=== PATIENT | female | born 1970 | race African-American/Black ===

== ENCOUNTER 2020-04-18 13:49 | Inpatient (IN) | payer OTHER, SELFPAY ==
--- NOTE | ~2020-04-18 | XR_ITS ---
EXAMINATION: PORTABLE CHEST 1 VIEW CLINICAL INFORMATION: OD . COMPARISON: No recent pertinent prior studies are available for comparison. TECHNIQUE: Portable frontal view of the chest was obtained. FINDINGS: Lungs are well expanded. No superimposed focal infiltrate, effusion, edema, or pneumothorax. Cardiac and mediastinal silhouettes within normal limits for the technique. There is convex right scoliotic curve with spinal hardware noted. XR/XR chest 1V IMPRESSION: Spinal hardware. Lungs appear clear.
[2020-04-18 14:00] VITALS: RESP 16; BMI 49.1
--- NOTE | 2020-04-18 14:29 | ED.PSYCH ---
HPI - Psych General Chief Complaint: Psychiatric Symptoms Stated Complaint: +SI Time Seen by Provider: 04/18/20 14:26 Source: EMS Mode of arrival: EMS Limitations: other (Intoxicated) History of Present Illness HPI Narrative: This is a 50-year-old female who presents via EMS from home with suicidal ideations. She is intoxicated admits to EtOH use states she has a history of crack cocaine use she last used yesterday she recently relapsed. Additionally she reports she has a history of depression she has been on clonidine and took 5 tablets 6 hours prior to arrival ?I did this before they do not do anything to me? she admits to intentional overdose in attempt to commit suicide. Patient upon arrival severely agitated yelling and trying. She has a strong odor of EtOH. That in the nurse's triage note it reports 60 mg of clonidine however this is a order processing specialist error and is post read 0.6 mg which is equivalent to 6 tablets of 0.1 mg. MD complaint: suicidal ideation, feels depressed and substance abuse Relieving factors: none Context: recent alcohol abuse and recent drug abuse Associated psychiatric symptoms: depression and suicidal ideation Treatments prior to arrival: placed on mental health hold If self harm: admits thoughts of self harm and intentional overdose Related Data Allergies Allergy/AdvReac Type Severity Reaction Status Date / Time Penicillins Allergy Rash Verified 04/18/20 14:29 Review of Systems Review of Systems: Yes Unobtainable due to mental condition (Intoxication and agitated) [facility] Past Medical History Medical History (Updated 04/18/20 @ 17:07 by Darrell Malin NP) Depression Substance abuse Social History Social History Alcohol intake: current Alcohol intake frequency: 3 or more drinks per day Alcohol type: beer and hard liquor Smoking Status: Unknown if ever smoked Use of substances other than those prescribed or required for medical reasons: Yes Substance Use Type: Crack/Cocaine and Marijuana Physical Exam Vital Signs: Vital Signs: Last Vital Signs Temp 98 F 04/18/20 14:43 Pulse 103 H 04/18/20 14:43 Resp 16 04/18/20 14:43 BP 145/87 H 04/18/20 14:43 Pulse Ox 98 04/18/20 14:43 Body Mass Index 49.1 Reviewed Const: Other: Yelling and screaming, grabbed her belongings from staff forcefully when she changed over to hospital attire. She is tearful labile mood. Strong odor of EtOH. Denies any pain or discomfort. General: anxious, combative and intoxicated appearing Nutritional Appearance: overweight Orientation/consciousness: patient oriented x3 HENMT: Head: Yes normal to inspection Ears: hearing grossly normal bilaterally Eyes: General: appearance normal, both eyes and all related structures Visual Lind: normal visual lind by confrontation Eyelids: Yes eyelids normal Conjunctivae: conjunctivae normal Sclerae: sclerae normal Corneas: corneas normal Pupils: Equal, round and reactive pupils present EOM: EOMs intact bilaterally Neck: Neck: Yes normal visual inspection, No positive Brudzinski's sign, No positive Kernig's sign and No tender Thyroid: Thyroid normal Chest: Chest palpation & inspection: normal inspection of the chest Resp: Effort & Inspection: normal respiratory effort Auscultation: clear to auscultation bilaterally Cardio: Jugular venous distension: no JVD Rhythm: regular rhythm Heart sounds: S1 normal heart sound present and S2 normal heart sound present GI: Inspection: Yes normal to inspection Palpation (GI): Soft to palpation Percussion: Yes normal to percussion Auscultation: normal bowel sounds : General: Yes no CVA tenderness Back/Spine/Pelvis: Back: no CVA tenderness Skin: General skin exam: no rashes or lesions noted Neuro: General: patient oriented x3 Cranial nerves: Yes Equal, round and reactive pupils present Extrem: General: Yes normal to inspection Course Reevaluation(s) Reevaluation #1: 1430 In review 42-year-old female with history of polysubstance abuse and depression presenting with complaint of suicidal ideation apparently took 5 or 6 tablets of clonidine about 6 hours prior to arrival with intentional plan to harm herself. Appears extremely agitated upon arrival, exit seeking behavior but briefly able to redirect. Quiet environment and food offered continues to yell and very tearful. Agreeable to medication given 2 mg of IV Ativan, requesting something to eat. Plan reviewed will get medical screening labs including toxicology studies and EKG will discuss case with poison Control. Will plan for repeat labs for tox screening at 4 hours and once medically cleared will obtain a crisis evaluation. Reevaluation #2: 1630 Has been much calmer since being medicated. Lab work shows leukocytosis 16 this is likely reactive and electrolytes show slightly hyper K at 3.2 given p.o. replacement. Otherwise UA shows positive cocaine and marijuana and negative for Tylenol salicylate. Ethanol 156. Plan for repeat at 18:30 orders placed. Given the leukocytosis will get a chest x-ray as well. If chest x-ray and repeat labs are stable patient can be medically cleared to be evaluated by crisis. Reevaluation #3: 1710 Patient placed on physician observation as she will require more time for repeat evaluation and once she is clinically sober from the alcohol she will need crisis evaluation. She may require acute inpatient psychiatric placement. Sign-out to [place] night team pending repeat labs and disposition. MDM - Psych Differential Diagnosis Differential diagnosis: Likely acute psychosis, suicidal ideation, bipolar disorder, depression, drug-induced psychotic disorder, acute anxiety, substance abuse, alcohol intoxication, overdose and mood disorder Lab Data Result diagrams: 04/18/20 14:51 04/18/20 14:50 Labs: Lab Results 04/18/20 04/18/20 04/18/20 Range/Units 14:47 14:47 14:47 WBC (4.8-10.8) X10*3/uL RBC (4.20-5.50) X10*6/uL Hgb (12.0-16.0) g/dl Hct (37-47) % MCV (80-98) fL MCH (27.0-33.0) pg MCHC (31.0-35.0) g/dl RDW (11.0-16.0) % Plt Count (160-400) X10*3/uL MPV (9.4-12.3) fL Immature Gran % (Auto) (0.0-0.4) % Neut % (Auto) (45-73) % Lymph % (Auto) (20-40) % [place] % (Auto) (2-11) % Eos % (Auto) (0-4) % Baso % (Auto) (0-2) % Lymph # (Auto) (1.2-4.9) X10*3/uL [place] # (Auto) (0.1-1.2) X10*3/uL Eos # (Auto) (0.0-0.4) X10*3/uL Baso # (Auto) (0.0-0.2) X10*3/uL Abs Immat Gran (auto) (0.00-0.03) X10*3/uL Absolute Neuts (auto) (2.0-8.3) X10*3/uL Absolute Nucleated RBC (0.0-0.012) X10*3/uL Nucleated RBC % (auto) (0.0-0.2) /100WBC PT (10.8-13.0) SEC INR (0.9-1.1) APTT (24.1-38.0) SEC Sodium (135-145) mmol/L Potassium (3.3-5.1) mmol/L Chloride (96-108) mmol/L Carbon Dioxide (22-29) mmol/L Anion Gap (12-20) BUN (9-16) mg/dL Creatinine (0.5-1.4) mg/dL Estim Creat Clear Calc Estimated GFR Random Glucose (60-115) mg/dL Calcium (8.4-10.2) mg/dL Total Bilirubin (0.0-1.0) mg/dL AST (5-31) U/L ALT (0-31) U/L Alkaline Phosphatase (39-117) U/L Total Protein (6.5-8.0) g/dL Albumin (3.5-5.0) g/dL Urine Color STRAW Urine Appearance CLEAR Urine pH 6.0 (5.0-8.0) Ur Specific [place] <= 1.005 (1.005-1.025) Urine Protein NEG (NEG-TRACE) MG/DL Urine Glucose (UA) NEG (NEG) MG/DL Urine Ketones NEG (NEG) MG/DL Urine Blood NEG (NEG) Urine Nitrite NEG (NEG) Ur Leukocyte Esterase NEG (NEG) Urine RBC 0 (0) /HPF Urine WBC 0 (0-4) /HPF Ur Squamous Epith Cells 1+ /LPF Urine Bacteria TRACE /LPF Urine Test NEGATIVE (NEGATIVE) Salicylates (15-30) mg/dL Urine Opiates Screen Not Detected (Not Detect) Acetaminophen (<30) mcg/mL Ur Barbiturates Screen Not Detected (Not Detect) Ur Phencyclidine Scrn Not Detected (Not Detect) Ur Amphetamines Screen Not Detected (Not Detect) U Benzodiazepines Scrn Not Detected (Not Detect) Urine Cocaine Screen POSITIVE H (Not Detect) U Marijuana (THC) Screen POSITIVE H (Not Detect) Ethyl Alcohol mg/dL 04/18/20 04/18/20 04/18/20 Range/Units 14:50 14:50 14:51 WBC 16.7 H (4.8-10.8) X10*3/uL RBC 4.55 (4.20-5.50) X10*6/uL Hgb 13.9 (12.0-16.0) g/dl Hct 40.6 (37-47) % MCV 89.2 (80-98) fL MCH 30.5 (27.0-33.0) pg MCHC 34.2 (31.0-35.0) g/dl RDW 13.4 (11.0-16.0) % Plt Count 386 (160-400) X10*3/uL MPV 8.7 L (9.4-12.3) fL Immature Gran % (Auto) 0.5 H (0.0-0.4) % Neut % (Auto) 63.7 (45-73) % Lymph % (Auto) 29.3 (20-40) % [place] % (Auto) 5.9 (2-11) % Eos % (Auto) 0.4 (0-4) % Baso % (Auto) 0.2 (0-2) % Lymph # (Auto) 4.9 (1.2-4.9) X10*3/uL [place] # (Auto) 1.0 (0.1-1.2) X10*3/uL Eos # (Auto) 0.1 (0.0-0.4) X10*3/uL Baso # (Auto) 0.0 (0.0-0.2) X10*3/uL Abs Immat Gran (auto) 0.09 H (0.00-0.03) X10*3/uL Absolute Neuts (auto) 10.6 H (2.0-8.3) X10*3/uL Absolute Nucleated RBC 0.000 (0.0-0.012) X10*3/uL Nucleated RBC % (auto) 0.0 (0.0-0.2) /100WBC PT (10.8-13.0) SEC INR (0.9-1.1) APTT (24.1-38.0) SEC Sodium 140 (135-145) mmol/L Potassium 3.1 L (3.3-5.1) mmol/L Chloride 103 (96-108) mmol/L Carbon Dioxide 21 L (22-29) mmol/L Anion Gap 19 (12-20) BUN 3 L (9-16) mg/dL Creatinine 0.65 (0.5-1.4) mg/dL Estim Creat Clear Calc 141.7 Estimated GFR > 60 Random Glucose 105 (60-115) mg/dL Calcium 9.5 (8.4-10.2) mg/dL Total Bilirubin 0.4 (0.0-1.0) mg/dL AST 15 (5-31) U/L ALT 9 (0-31) U/L Alkaline Phosphatase 108 (39-117) U/L Total Protein 7.8 (6.5-8.0) g/dL Albumin 4.3 (3.5-5.0) g/dL Urine Color Urine Appearance Urine pH (5.0-8.0) Ur Specific [place] (1.005-1.025) Urine Protein (NEG-TRACE) MG/DL Urine Glucose (UA) (NEG) MG/DL Urine Ketones (NEG) MG/DL Urine Blood (NEG) Urine Nitrite (NEG) Ur Leukocyte Esterase (NEG) Urine RBC (0) /HPF Urine WBC (0-4) /HPF Ur Squamous Epith Cells /LPF Urine Bacteria /LPF Urine Test (NEGATIVE) Salicylates < 5.0 L (15-30) mg/dL Urine Opiates Screen (Not Detect) Acetaminophen < 1 (<30) mcg/mL Ur Barbiturates Screen (Not Detect) Ur Phencyclidine Scrn (Not Detect) Ur Amphetamines Screen (Not Detect) U Benzodiazepines Scrn (Not Detect) Urine Cocaine Screen (Not Detect) U Marijuana (THC) Screen (Not Detect) Ethyl Alcohol 156 mg/dL 04/18/20 Range/Units 14:51 WBC (4.8-10.8) X10*3/uL RBC (4.20-5.50) X10*6/uL Hgb (12.0-16.0) g/dl Hct (37-47) % MCV (80-98) fL MCH (27.0-33.0) pg MCHC (31.0-35.0) g/dl RDW (11.0-16.0) % Plt Count (160-400) X10*3/uL MPV (9.4-12.3) fL Immature Gran % (Auto) (0.0-0.4) % Neut % (Auto) (45-73) % Lymph % (Auto) (20-40) % [place] % (Auto) (2-11) % Eos % (Auto) (0-4) % Baso % (Auto) (0-2) % Lymph # (Auto) (1.2-4.9) X10*3/uL [place] # (Auto) (0.1-1.2) X10*3/uL Eos # (Auto) (0.0-0.4) X10*3/uL Baso # (Auto) (0.0-0.2) X10*3/uL Abs Immat Gran (auto) (0.00-0.03) X10*3/uL Absolute Neuts (auto) (2.0-8.3) X10*3/uL Absolute Nucleated RBC (0.0-0.012) X10*3/uL Nucleated RBC % (auto) (0.0-0.2) /100WBC PT 12.6 (10.8-13.0) SEC INR 1.1 (0.9-1.1) APTT 33.8 (24.1-38.0) SEC Sodium (135-145) mmol/L Potassium (3.3-5.1) mmol/L Chloride (96-108) mmol/L Carbon Dioxide (22-29) mmol/L Anion Gap (12-20) BUN (9-16) mg/dL Creatinine (0.5-1.4) mg/dL Estim Creat Clear Calc Estimated GFR Random Glucose (60-115) mg/dL Calcium (8.4-10.2) mg/dL Total Bilirubin (0.0-1.0) mg/dL AST (5-31) U/L ALT (0-31) U/L Alkaline Phosphatase (39-117) U/L Total Protein (6.5-8.0) g/dL Albumin (3.5-5.0) g/dL Urine Color Urine Appearance Urine pH (5.0-8.0) Ur Specific [place] (1.005-1.025) Urine Protein (NEG-TRACE) MG/DL Urine Glucose (UA) (NEG) MG/DL Urine Ketones (NEG) MG/DL Urine Blood (NEG) Urine Nitrite (NEG) Ur Leukocyte Esterase (NEG) Urine RBC (0) /HPF Urine WBC (0-4) /HPF Ur Squamous Epith Cells /LPF Urine Bacteria /LPF Urine Test (NEGATIVE) Salicylates (15-30) mg/dL Urine Opiates Screen (Not Detect) Acetaminophen (<30) mcg/mL Ur Barbiturates Screen (Not Detect) Ur Phencyclidine Scrn (Not Detect) Ur Amphetamines Screen (Not Detect) U Benzodiazepines Scrn (Not Detect) Urine Cocaine Screen (Not Detect) U Marijuana (THC) Screen (Not Detect) Ethyl Alcohol mg/dL ECG Data Interpretation: Vent. Rate : 104 BPM Atrial Rate : 104 BPM P-R Int : 128 ms QRS Dur : 072 ms QT Int : 334 ms P-R-T Axes : 051 052 043 degrees QTc Int : 439 ms Sinus tachycardia Possible Left atrial enlargement Borderline ECG No previous ECGs available Discharge Plan Discharge Clinical Impression: Substance abuse, Depression, Clonidine overdose, Alcohol intoxication
[2020-04-18] MEDS: LORazepam 2 MG/ML VIAL IVPUSH (14:32)
[2020-04-18 14:43] VITALS: BP 145/87; PULSE 103; RESP 16; TEMP 36.6; O2SAT 98
[2020-04-18 14:57] LABS: MANUAL DIFF FLAG NO
[2020-04-18 14:59] LABS: Basophils Percent Auto 0.2 % (0-2); Eosinophils Absolute Auto 0.1 X10*3/uL (0.0-0.4); Eosinophils Percent Auto 0.4 % (0-4); Hematocrit 40.6 % (37-47); Hemoglobin 13.9 g/dl (12.0-16.0); Imm Gran Abs Auto 0.09 X10*3/uL (0.00-0.03); Imm Gran Pct Auto 0.5 % (0.0-0.4); Lymphocytes Absolute Auto 4.9 X10*3/uL (1.2-4.9); Lymphocytes Percent Auto 29.3 % (20-40); Mean Corpuscular HGB Conc 34.2 g/dl (31.0-35.0); Mean Corpuscular Hemoglobin 30.5 pg (27.0-33.0); Mean Corpuscular Volume 89.2 fL (80-98); Mean Platelet Volume 8.7 fL (9.4-12.3); Monocytes Percent Auto 5.9 % (2-11); Neutrophils Absolute Auto 10.6 X10*3/uL (2.0-8.3); Neutrophils Percent Auto 63.7 % (45-73); Platelet Count 386 X10*3/uL (160-400); Red Blood Count 4.55 X10*6/uL (4.20-5.50); Red Cell Distribution Width 13.4 % (11.0-16.0); White Blood Count 16.7 X10*3/uL (4.8-10.8)
[2020-04-18 15:10] LABS: Glucose Urine UA NEG (NEG); Leukocyte Esterase Urine NEG (NEG); Nitrite Urine NEG (NEG); Specific Gravity - Urine <= 1.005 (1.005-1.025); Urine Blood NEG (NEG); Urine Ketones NEG (NEG); Urine Protein NEG (NEG-TRACE)
[2020-04-18 15:13] LABS: INTERNATIONAL NORM RATIO 1.1 (0.9-1.1); Prothrombin Time 12.6 SEC (10.8-13.0)
[2020-04-18 15:13] LABS: Appearance Urine CLEAR; Color Urine STRAW; UPreg QC Valid YES; Urine Pregnancy NEGATIVE (NEGATIVE)
[2020-04-18 15:16] LABS: Partial Thromboplastin Time 33.8 SEC (24.1-38.0)
[2020-04-18 15:23] LABS: Bacteria Urine TRACE /LPF; RBC Urine 0 /HPF (0); Squamous Epithelial Cell Urine 1+ /LPF; WBC Urine 0 /HPF (0-4)
[2020-04-18 15:27] LABS: Ethanol 156 mg/dL
[2020-04-18 15:32] LABS: Amphetamine Screen Urine Not Detected (Not Detect); Barbiturates, Urine Not Detected (Not Detect); Benzodiazepines Screen Urine Not Detected (Not Detect); Cannabinoid Screen Urine POSITIVE (Not Detect); Cocaine Screen Urine POSITIVE (Not Detect); Opiate Screen Urine Not Detected (Not Detect); Phencyclidine Screen Urine Not Detected (Not Detect)
[2020-04-18 15:35] LABS: Acetaminophen LAB < 1 mcg/mL (<30); Alanine Aminotransferase 9 U/L (0-31); Albumin Level 4.3 g/dL (3.5-5.0); Alkaline Phosphatase 108 U/L (39-117); Anion Gap 19 (12-20); Aspartate Amino Transferase 15 U/L (5-31); Bilirubin Total 0.4 mg/dL (0.0-1.0); Blood Urea Nitrogen 3 mg/dL (9-16); Calcium 9.5 mg/dL (8.4-10.2); Carbon Dioxide 21 mmol/L (22-29); Chloride 103 mmol/L (96-108); Creatinine Clr Calc Pharmacy 141.7; Estimated Glomerular Filt Rate > 60; Glucose Random 105 mg/dL (60-115); Potassium 3.1 mmol/L (3.3-5.1); Salicylate < 5.0 mg/dL (15-30); Sodium 140 mmol/L (135-145); Total Protein 7.8 g/dL (6.5-8.0)
[2020-04-18 17:02] VITALS: BP 139/88; PULSE 103; RESP 16; TEMP 36.7; O2SAT 96
--- NOTE | 2020-04-18 17:14 | PC.NURSE ---
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
--- NOTE | 2020-04-18 17:28 | PC.NURSE ---
support care to continue per poison control
[2020-04-18] MEDS: ondansetron HCL 4 MG/2 ML VIAL IVPUSH (17:31)
[2020-04-18 18:20] VITALS: PULSE 100; RESP 20; TEMP 36.8; O2SAT 96
--- NOTE | 2020-04-18 18:33 | PC.NURSE ---
pt requesting iv be removed d/t discomfort. iv removed.
[2020-04-18 18:59] LABS: Acetaminophen LAB < 1 mcg/mL (<30); Alanine Aminotransferase 10 U/L (0-31); Albumin Level 4.1 g/dL (3.5-5.0); Alkaline Phosphatase 100 U/L (39-117); Anion Gap 15 (12-20); Aspartate Amino Transferase 14 U/L (5-31); Bilirubin Total 0.4 mg/dL (0.0-1.0); Blood Urea Nitrogen 5 mg/dL (9-16); Calcium 9.1 mg/dL (8.4-10.2); Carbon Dioxide 23 mmol/L (22-29); Chloride 104 mmol/L (96-108); Creatinine Clr Calc Pharmacy 135.4; Estimated Glomerular Filt Rate > 60; Glucose Random 117 mg/dL (60-115); Potassium 3.1 mmol/L (3.3-5.1); Salicylate < 5.0 mg/dL (15-30); Sodium 139 mmol/L (135-145); Total Protein 7.3 g/dL (6.5-8.0)
[2020-04-18 19:03] VITALS: BP 171/81; PULSE 102; RESP 16; TEMP 36.8; O2SAT 96
[2020-04-18] MEDS: Potassium Chloride ER 20 MEQ TAB.ER.PRT 60 MEQ PO (20:30)
[2020-04-18] MEDS: Potassium Chloride ER 20 MEQ TAB.ER.PRT PO (20:30)
--- NOTE | 2020-04-18 20:31 | MHC.RECOVSUP ---
Reason for consult o Current location: ED #06 o Identified substance use concern: - Overdose - Support ? Intervention: o Community resources provided ? Plan: o Patient awaiting crisis evaluation ? Additional information: Made attempt to speak with pt but both times she was asleep. I was able to leave her with recovery resources by her bed side
--- NOTE | 2020-04-18 21:03 | PC.NURSE ---
poison control called for update on patient's status and they recommend supportive care. Patient has been medically cleared and [facility] will be faxed.
--- NOTE | 2020-04-18 21:51 | PC.NURSE ---
[facility] faxed and called.
[2020-04-18 22:00] VITALS: BP 159/103; PULSE 102; RESP 17; O2SAT 96
[2020-04-19] VITALS (9 sets, daily range): BP systolic 134–194; BP diastolic 95–109; PULSE 76–120; RESP 20–24; TEMP 36.4; O2SAT 93–96
[2020-04-19 00:51] LABS: COVID-19 Test Negative (Negative)
[2020-04-19] MEDS: Mirtazapine 7.5 MG TABLET 22.5 MG PO (04:04)
--- NOTE | 2020-04-19 07:09 | PC.NURSE ---
Report received. Pt currently sleeping, respirations even and unlabored, in no apparent distress. PT waiting to be seen by N.
[2020-04-19] MEDS: Acetaminophen 325 MG TABLET 650 MG PO ×2 (09:48→17:28)
[2020-04-19] MEDS: LORazepam 1 MG TABLET PO ×3 (09:48→19:57)
--- NOTE | 2020-04-19 10:26 | PC.NURSE ---
PT tearful, asking what the plan is. Plan of care explained. PT states that she is depressed, states that she took her medications yesterday in an attempt to harm herself. Verbal reassurance given.
[2020-04-19] MEDS: Escitalopram Oxalate 20 MG TABLET PO (10:50)
--- NOTE | 2020-04-19 11:16 | PC.NURSE ---
Per pharmacy, pt's medication humira is in fridge in pharmacy, pt due to medication on
--- NOTE | 2020-04-19 11:23 | PC.NURSE ---
Care team with PT for eval.
[2020-04-19] MEDS: cloNIDine HCL 0.1 MG TABLET PO (14:44)
--- NOTE | 2020-04-19 15:59 | HO.PSYADMNOT ---
HPI Chief Complaint: SI Sources of Information: patient interviewed, chart reviewed and crisis/core team assessment reviewed HPI Subjective Notes: Conditional Voluntary Narrative: Ms. Nolen is a 50 year-old woman with hx of MDD and cocaine use. She self presented to [facility] reporting increased depressed mood, suicidal ideation, hopeless/helpless in context of recent relapse on cocaine. She also used alcohol night before but states drug of choice is cocaine. This is her first inpatient admission. She reports she is currently going to school. She reports that she does not think her family understands her. She endorse depressed mood, anhedonia, hopeless/helpless. She denied hx of VH/AH. She does tend to minimize cocaine use, stating she does not think it is a problems. Past Psychiatric History: OP: CHD Inpt: none Suicide attempts: none Past medication trials: remeron, sertraline. Medical Evaluation Reviewed: Yes Pt HTN- amlodipine added. Diagnostics Vital Signs (24Hr): Body Mass Index 49.1 Labs Results: 04/20/20 07:21 04/20/20 07:21 Imaging Radiology Impressions: ITS Impressions Chest X-Ray 04/18/20 17:00 IMPRESSION: Spinal hardware. Lungs appear clear. Meds/Allergies Allergies Allergies Allergy/AdvReac Type Severity Reaction Status Date / Time Penicillins Allergy Rash Verified 04/18/20 14:29 Mental Status Exam Mental Status Exam Narrative: Appearance: casually groomed, fair hygiene, tearful, in NAD Behavior: calm, cooperative Psychomotor: no agitation or retardation noted Speech: clear, normal rate/rhythm/volume, spontaneous TP: linear TC: no signs of psychosis, hopeless/helpless Mood: depressed Affect:dysphoric SI:none HI:none AH/VH:none Delusions:none Insight/judgment:poorx 2 Memory/cog: alert, oriented x 3. Grossly intact to conversational testing. Assessment & Plan Assessment & Plan (1) MDD (major depressive disorder), recurrent episode, moderate: Status: Acute Code(s): F33.1 - Major depressive disorder, recurrent, moderate Assessment and Plan: 1. Continue current medications. (2) Cocaine abuse: Status: Acute Code(s): F14.10 - Cocaine abuse, uncomplicated (3) Alcohol abuse: Status: Acute Code(s): F10.10 - Alcohol abuse, uncomplicated Patient educated on: diagnosis, medication risk/benefits, substance abuse and therapeutic strategies Informed Consent: understands Reason for continued inpatient stay Substantial Risk for: harm to self
[2020-04-19] MEDS: Thiamine HCL 100 MG TABLET PO (17:28)
[2020-04-19] MEDS: Folic Acid 1 MG TABLET PO (17:28)
[2020-04-19] MEDS: amLODIPine Besylate 5 MG TABLET PO (17:52)
[2020-04-19] MEDS: Milk of Magnesia 30 ML ORAL.SUSP PO (19:01)
[2020-04-19] MEDS: cloNIDine HCL 0.1 MG TABLET 0.2 MG PO (19:55)
[2020-04-19] MEDS: Mirtazapine 30 MG TABLET PO (19:57)
--- NOTE | 2020-04-19 21:35 | PC.ADMIT ---
Pt is a 50 year old female who [place] [facility] [place] at approx 15:50 on a cv status. Pt is covid - Utox+ for cocaine and THC and Alcohol. EkG reports Sinus Tachycardia. Pt was brought to [facility] via EM for SI. Pt reports difficulty sleeping, impulsive behaviors, loss of interest, reckless behaviors, difficulty stopping substance use, sadness, helplessness, difficulty sleeping, anxious thoughts, increased guilt, hopelessness, SI, depressed mood. Pt was tearful and anxious during on our admit. Pt has a therapist via [facility] [place]. Pt has a hx of trauma. Pt denies SI/hI/VA/ROBERTSON and pain during admit. Pt is on 15min safety checks. Start treatment plan and monitor for safety.
[2020-04-20 06:35] VITALS: BP 147/93; PULSE 92; RESP 16; TEMP 36.7; O2SAT 97
[2020-04-20 07:31] LABS: MANUAL DIFF FLAG NO
[2020-04-20 07:34] LABS: Basophils Absolute Auto 0.1 X10*3/uL (0.0-0.2); Basophils Percent Auto 0.4 % (0-2); Eosinophils Absolute Auto 0.1 X10*3/uL (0.0-0.4); Eosinophils Percent Auto 0.7 % (0-4); Hematocrit 43.1 % (37-47); Hemoglobin 14.5 g/dl (12.0-16.0); Imm Gran Abs Auto 0.06 X10*3/uL (0.00-0.03); Imm Gran Pct Auto 0.5 % (0.0-0.4); Lymphocytes Absolute Auto 4.8 X10*3/uL (1.2-4.9); Lymphocytes Percent Auto 41.1 % (20-40); Mean Corpuscular HGB Conc 33.6 g/dl (31.0-35.0); Mean Corpuscular Hemoglobin 30.7 pg (27.0-33.0); Mean Corpuscular Volume 91.3 fL (80-98); Mean Platelet Volume 8.8 fL (9.4-12.3); Monocytes Percent Auto 8.7 % (2-11); Neutrophils Absolute Auto 5.7 X10*3/uL (2.0-8.3); Neutrophils Percent Auto 48.6 % (45-73); Platelet Count 400 X10*3/uL (160-400); Red Blood Count 4.72 X10*6/uL (4.20-5.50); Red Cell Distribution Width 13.2 % (11.0-16.0); White Blood Count 11.7 X10*3/uL (4.8-10.8)
[2020-04-20 07:58] LABS: Estimated Average Glucose 126 mg/dL
[2020-04-20 08:07] LABS: Cholesterol 232 mg/dL; HDL Cholesterol 49 mg/dL; LDL Cholesterol Calculated 146 mg/dl; Triglycerides 185 mg/dL
[2020-04-20] MEDS: Naltrexone HCl 50 MG TABLET PO (08:58)
[2020-04-20] MEDS: Folic Acid 1 MG TABLET PO (08:58)
[2020-04-20 08:59] VITALS: BP 142/88; PULSE 108
[2020-04-20] MEDS: Nicotine 14 MG PATCH.TD24 TRANSDERMA (08:59)
[2020-04-20] MEDS: Escitalopram Oxalate 20 MG TABLET PO (08:59)
[2020-04-20] MEDS: amLODIPine Besylate 5 MG TABLET PO (08:59)
[2020-04-20] MEDS: Thiamine HCL 100 MG TABLET PO (08:59)
--- NOTE | 2020-04-20 12:20 | HO.PSYCHPN ---
Subjective Subjective Date of Service: 04/21/20 Reason For Visit: SI Subjective Notes: Conditional Voluntary Interim History: Patient denies she is suicidal. States it was stupid thing to do. Expresses regret. Denies cravings but likely minimizing. Patient anxious for discharge. Elevated blood pressures noted will adjust medications accordingly. Medication Compliance: Yes Side effects from medications: No Attending Groups: Yes Review of Systems Review of Systems Yes Unobtainable due to mental condition (Intoxication and agitated) Diagnostics Vital Signs (24Hr): Vital Signs - 24 hr 04/19/20 14:32 04/19/20 14:44 04/19/20 15:37 Temperature Pulse Rate 102 H 76 Respiratory Rate Blood Pressure 167/109 H 167/109 H 163/95 H Pulse Oximetry 93 04/19/20 16:45 04/19/20 17:52 04/19/20 18:00 Temperature 97.5 F Pulse Rate 120 H 88 88 Respiratory Rate Blood Pressure 134/100 H 158/100 H 184/104 H Pulse Oximetry 04/19/20 19:55 04/20/20 06:35 04/20/20 08:59 Temperature 98.1 F Pulse Rate 86 92 108 H Respiratory Rate 16 Blood Pressure 184/104 H 147/93 H 142/88 H Pulse Oximetry 97 Body Mass Index 49.1 Labs Results: 04/20/20 07:21 04/20/20 07:21 Labs: Laboratory Results - last 48 hr 04/18/20 04/18/20 04/18/20 14:47 14:47 14:47 WBC RBC Hgb Hct MCV MCH MCHC RDW Plt Count MPV Immature Gran % (Auto) Neut % (Auto) Lymph % (Auto) [place] % (Auto) Eos % (Auto) Baso % (Auto) Lymph # (Auto) [place] # (Auto) Eos # (Auto) Baso # (Auto) Abs Immat Gran (auto) Absolute Neuts (auto) Absolute Nucleated RBC Nucleated RBC % (auto) PT INR APTT Sodium Potassium Chloride Carbon Dioxide Anion Gap BUN Creatinine Estim Creat Clear Calc Estimated GFR Random Glucose Estimat Average Glucose Hemoglobin A1c % Calcium Total Bilirubin AST ALT Alkaline Phosphatase Total Protein Albumin Triglycerides Cholesterol LDL Cholesterol, Calc HDL Cholesterol Urine Color STRAW Urine Appearance CLEAR Urine pH 6.0 Ur Specific [place] <= 1.005 Urine Protein NEG Urine Glucose (UA) NEG Urine Ketones NEG Urine Blood NEG Urine Nitrite NEG Ur Leukocyte Esterase NEG Urine RBC 0 Urine WBC 0 Ur Squamous Epith Cells 1+ Urine Bacteria TRACE Urine Test NEGATIVE Salicylates Urine Opiates Screen Not Detected Acetaminophen Ur Barbiturates Screen Not Detected Ur Phencyclidine Scrn Not Detected Ur Amphetamines Screen Not Detected U Benzodiazepines Scrn Not Detected Urine Cocaine Screen POSITIVE H U Marijuana (THC) Screen POSITIVE H Ethyl Alcohol COVID-19 ([facility]) COVID-19 Clin Com 04/18/20 04/18/20 04/18/20 14:50 14:50 14:51 WBC 16.7 H RBC 4.55 Hgb 13.9 Hct 40.6 MCV 89.2 MCH 30.5 MCHC 34.2 RDW 13.4 Plt Count 386 MPV 8.7 L Immature Gran % (Auto) 0.5 H Neut % (Auto) 63.7 Lymph % (Auto) 29.3 [place] % (Auto) 5.9 Eos % (Auto) 0.4 Baso % (Auto) 0.2 Lymph # (Auto) 4.9 [place] # (Auto) 1.0 Eos # (Auto) 0.1 Baso # (Auto) 0.0 Abs Immat Gran (auto) 0.09 H Absolute Neuts (auto) 10.6 H Absolute Nucleated RBC 0.000 Nucleated RBC % (auto) 0.0 PT INR APTT Sodium 140 Potassium 3.1 L Chloride 103 Carbon Dioxide 21 L Anion Gap 19 BUN 3 L Creatinine 0.65 Estim Creat Clear Calc 141.7 Estimated GFR > 60 Random Glucose 105 Estimat Average Glucose Hemoglobin A1c % Calcium 9.5 Total Bilirubin 0.4 AST 15 ALT 9 Alkaline Phosphatase 108 Total Protein 7.8 Albumin 4.3 Triglycerides Cholesterol LDL Cholesterol, Calc HDL Cholesterol Urine Color Urine Appearance Urine pH Ur Specific [place] Urine Protein Urine Glucose (UA) Urine Ketones Urine Blood Urine Nitrite Ur Leukocyte Esterase Urine RBC Urine WBC Ur Squamous Epith Cells Urine Bacteria Urine Test Salicylates < 5.0 L Urine Opiates Screen Acetaminophen < 1 Ur Barbiturates Screen Ur Phencyclidine Scrn Ur Amphetamines Screen U Benzodiazepines Scrn Urine Cocaine Screen U Marijuana (THC) Screen Ethyl Alcohol 156 COVID-19 ([facility]STY) COVID-19 Clin Com 04/18/20 04/18/20 04/19/20 14:51 18:04 00:26 WBC RBC Hgb Hct MCV MCH MCHC RDW Plt Count MPV Immature Gran % (Auto) Neut % (Auto) Lymph % (Auto) [place] % (Auto) Eos % (Auto) Baso % (Auto) Lymph # (Auto) [place] # (Auto) Eos # (Auto) Baso # (Auto) Abs Immat Gran (auto) Absolute Neuts (auto) Absolute Nucleated RBC Nucleated RBC % (auto) PT 12.6 INR 1.1 APTT 33.8 Sodium 139 Potassium 3.1 L Chloride 104 Carbon Dioxide 23 Anion Gap 15 BUN 5 L D Creatinine 0.68 Estim Creat Clear Calc 135.4 Estimated GFR > 60 Random Glucose 117 H Estimat Average Glucose Hemoglobin A1c % Calcium 9.1 Total Bilirubin 0.4 AST 14 ALT 10 Alkaline Phosphatase 100 Total Protein 7.3 Albumin 4.1 Triglycerides Cholesterol LDL Cholesterol, Calc HDL Cholesterol Urine Color Urine Appearance Urine pH Ur Specific [place] Urine Protein Urine Glucose (UA) Urine Ketones Urine Blood Urine Nitrite Ur Leukocyte Esterase Urine RBC Urine WBC Ur Squamous Epith Cells Urine Bacteria Urine Test Salicylates < 5.0 L Urine Opiates Screen Acetaminophen < 1 Ur Barbiturates Screen Ur Phencyclidine Scrn Ur Amphetamines Screen U Benzodiazepines Scrn Urine Cocaine Screen U Marijuana (THC) Screen Ethyl Alcohol COVID-19 ([facility]STY) Negative COVID-19 Clin Com See Note 04/20/20 04/20/20 04/20/20 07:21 07:21 07:21 WBC RBC Hgb Hct MCV MCH MCHC RDW Plt Count MPV Immature Gran % (Auto) Neut % (Auto) Lymph % (Auto) [place] % (Auto) Eos % (Auto) Baso % (Auto) Lymph # (Auto) [place] # (Auto) Eos # (Auto) Baso # (Auto) Abs Immat Gran (auto) Absolute Neuts (auto) Absolute Nucleated RBC Nucleated RBC % (auto) PT INR APTT Sodium Potassium 4.0 D Chloride Carbon Dioxide Anion Gap BUN Creatinine Estim Creat Clear Calc Estimated GFR Random Glucose Estimat Average Glucose 126 Hemoglobin A1c % 6.0 Calcium Total Bilirubin AST ALT Alkaline Phosphatase Total Protein Albumin Triglycerides 185 Cholesterol 232 LDL Cholesterol, Calc 146 HDL Cholesterol 49 Urine Color Urine Appearance Urine pH Ur Specific [place] Urine Protein Urine Glucose (UA) Urine Ketones Urine Blood Urine Nitrite Ur Leukocyte Esterase Urine RBC Urine WBC Ur Squamous Epith Cells Urine Bacteria Urine Test Salicylates Urine Opiates Screen Acetaminophen Ur Barbiturates Screen Ur Phencyclidine Scrn Ur Amphetamines Screen U Benzodiazepines Scrn Urine Cocaine Screen U Marijuana (THC) Screen Ethyl Alcohol COVID-19 ([facility]) COVID-19 Clin Com 04/20/20 07:21 WBC 11.7 H RBC 4.72 Hgb 14.5 Hct 43.1 MCV 91.3 MCH 30.7 MCHC 33.6 RDW 13.2 Plt Count 400 MPV 8.8 L Immature Gran % (Auto) 0.5 H Neut % (Auto) 48.6 Lymph % (Auto) 41.1 H [place] % (Auto) 8.7 Eos % (Auto) 0.7 Baso % (Auto) 0.4 Lymph # (Auto) 4.8 [place] # (Auto) 1.0 Eos # (Auto) 0.1 Baso # (Auto) 0.1 Abs Immat Gran (auto) 0.06 H Absolute Neuts (auto) 5.7 Absolute Nucleated RBC 0.000 Nucleated RBC % (auto) 0.0 PT INR APTT Sodium Potassium Chloride Carbon Dioxide Anion Gap BUN Creatinine Estim Creat Clear Calc Estimated GFR Random Glucose Estimat Average Glucose Hemoglobin A1c % Calcium Total Bilirubin AST ALT Alkaline Phosphatase Total Protein Albumin Triglycerides Cholesterol LDL Cholesterol, Calc HDL Cholesterol Urine Color Urine Appearance Urine pH Ur Specific [place] Urine Protein Urine Glucose (UA) Urine Ketones Urine Blood Urine Nitrite Ur Leukocyte Esterase Urine RBC Urine WBC Ur Squamous Epith Cells Urine Bacteria Urine Test Salicylates Urine Opiates Screen Acetaminophen Ur Barbiturates Screen Ur Phencyclidine Scrn Ur Amphetamines Screen U Benzodiazepines Scrn Urine Cocaine Screen U Marijuana (THC) Screen Ethyl Alcohol COVID-19 (MISTY) COVID-19 Clin Com Imaging Radiology Impressions: ITS Impressions Chest X-Ray 04/18/20 17:00 IMPRESSION: Spinal hardware. Lungs appear clear. Medications Medications Current Medications Generic Name Dose Route Start Last Admin Trade Name Freq PRN Reason Stop Dose Admin Acetaminophen 650 mg 04/19/20 15:21 04/19/20 17:28 Acetaminophen 325 Mg Tablet PO 650 mg Q6H PRN Administration Headache/Pain Mild Scale (1-3) Al Hydroxide/Mg Hydroxide 30 ml 04/19/20 15:21 Magnesium Hydrox/Alum Hydrox 30 Ml Oral.Susp PO Q6H PRN Heartburn/Nausea Amlodipine Besylate 5 mg 04/19/20 17:25 04/20/20 08:59 Amlodipine Besylate 5 Mg Tablet PO 5 mg DAILY KENDRICK Administration Protocol Clonidine HCl 0.1 mg 04/19/20 10:16 04/19/20 14:44 Clonidine Hcl 0.1 Mg Tablet PO 0.1 mg BID PRN Administration Anxiety Protocol Clonidine HCl 0.2 mg 04/19/20 21:00 04/19/20 19:55 Clonidine Hcl 0.1 Mg Tablet PO 0.2 mg BEDTIME KENDRICK Administration Protocol Escitalopram Oxalate 20 mg 04/19/20 10:30 04/20/20 08:59 Escitalopram Oxalate 20 Mg Tablet PO 20 mg DAILY KENDRICK Administration Folic Acid 1 mg 04/19/20 17:20 04/20/20 08:58 Folic Acid 1 Mg Tablet PO 1 mg DAILY KENDRICK Administration Hydroxyzine HCl 25 mg 04/19/20 15:21 Hydroxyzine Hcl 25 Mg Tablet PO BEDTIME PRN Anxiety Lorazepam 1 mg 04/19/20 17:15 04/19/20 19:01 Lorazepam 1 Mg Tablet PO 1 mg Q4H PRN Administration anxiety/alcohol withdrawal Magnesium Hydroxide 30 ml 04/19/20 15:21 04/19/20 19:01 Milk Of Magnesia 30 Ml Oral.Susp PO 30 ml DAILY PRN Administration Constipation Mirtazapine 30 mg 04/19/20 21:00 04/19/20 19:57 Mirtazapine 30 Mg Tablet PO 30 mg BEDTIME KENDRICK Administration Naltrexone HCl 50 mg 04/19/20 10:30 04/20/20 08:58 Naltrexone Hcl 50 Mg Tablet PO 50 mg DAILY KENDRICK Administration Nicotine 14 mg 04/20/20 09:00 04/20/20 08:59 Nicotine 14 Mg Patch.Td24 TRANSDERMA 14 mg DAILY KENDRICK Administration Nicotine Polacrilex 4 mg 04/19/20 22:30 Nicotine Polacrilex 2 Mg Gum BUCCAL Q2H PRN Nicotine Cravings Pat Own Med (Humira 1 each 04/25/20 09:00 Cf 40mg/0.4ml) SUBCUT TH@0900 KENDRICK Thiamine HCl 100 mg 04/19/20 17:20 04/20/20 08:59 Thiamine Hcl 100 Mg Tablet PO 100 mg DAILY KENDRICK Administration Trazodone HCl 50 mg 04/19/20 15:21 Trazodone Hcl 50 Mg Tablet PO BEDTIME PRN Insomnia Allergies Allergies Allergy/AdvReac Type Severity Reaction Status Date / Time Penicillins Allergy Rash Verified 04/18/20 14:29 Assessment & Plan Greater than 50% of the session was spent on counseling and/or coordination of care Continue withdrawal protocol and monitoring. Clonidine has been helpful to reduce blood pressure. Will also increase Norvasc. Reason for contiued inpatient stay Substantial Risk for: harm to self
[2020-04-20] MEDS: LORazepam 1 MG TABLET PO (12:48)
[2020-04-20 13:46] LABS: Folate 13.4 ng/mL (> or = 4.0); Vitamin B12 248 pg/mL (200-900)
[2020-04-20 16:09] VITALS: BP 140/80; PULSE 104; TEMP 36.7; O2SAT 98
[2020-04-20] MEDS: Nicotine Polacrilex 2 MG GUM 4 MG BUCCAL (16:10)
[2020-04-20] MEDS: Mirtazapine 30 MG TABLET PO (21:05)
[2020-04-20 21:08] VITALS: BP 159/72; PULSE 86
[2020-04-20] MEDS: cloNIDine HCL 0.1 MG TABLET 0.2 MG PO (21:08)
[2020-04-21] VITALS (8 sets, daily range): BP systolic 129–176; BP diastolic 72–99; PULSE 87–106; RESP 16; TEMP 36.4–36.9; O2SAT 96–99
--- NOTE | 2020-04-21 08:23 | P.PNPSI_ITS ---
Subjective Subjective Date of Service: 04/21/20 Reason For Visit: SI Interim History: 04/21/2020: Patient denies suicidality or cravings. Insisting that she should be discharged today. But was redirectable. Patient pushing for discharge as soon as possible. Patient educated regarding option for 3 day notice. 04/20/2020:Patient denies she is suicidal. States it was stupid thing to do. Expresses regret. Denies cravings but likely minimizing. Patient anxious for discharge. Elevated blood pressures noted will adjust medications accordingly. Review of Systems Review of Systems Yes Unobtainable due to mental condition (Intoxication and agitated) Diagnostics Vital Signs (24Hr): Vital Signs - 24 hr 04/20/20 08:59 04/20/20 16:09 04/20/20 21:08 Temperature 98.1 F Pulse Rate 108 H 104 H 86 Respiratory Rate Blood Pressure 142/88 H 140/80 H 159/72 H Pulse Oximetry 98 04/21/20 06:15 Temperature Pulse Rate Respiratory Rate 16 Blood Pressure Pulse Oximetry Body Mass Index 49.1 Labs Results: 04/20/20 07:21 04/20/20 07:21 Labs: Laboratory Results - last 48 hr 04/20/20 04/20/20 04/20/20 07:21 07:21 07:21 WBC RBC Hgb Hct MCV MCH MCHC RDW Plt Count MPV Immature Gran % (Auto) Neut % (Auto) Lymph % (Auto) [place] % (Auto) Eos % (Auto) Baso % (Auto) Lymph # (Auto) [place] # (Auto) Eos # (Auto) Baso # (Auto) Abs Immat Gran (auto) Absolute Neuts (auto) Absolute Nucleated RBC Nucleated RBC % (auto) Potassium 4.0 D Estimat Average Glucose 126 Hemoglobin A1c % 6.0 Triglycerides 185 Cholesterol 232 LDL Cholesterol, Calc 146 HDL Cholesterol 49 Vitamin B12 Folate 04/20/20 04/20/20 07:21 07:21 WBC 11.7 H RBC 4.72 Hgb 14.5 Hct 43.1 MCV 91.3 MCH 30.7 MCHC 33.6 RDW 13.2 Plt Count 400 MPV 8.8 L Immature Gran % (Auto) 0.5 H Neut % (Auto) 48.6 Lymph % (Auto) 41.1 H [place] % (Auto) 8.7 Eos % (Auto) 0.7 Baso % (Auto) 0.4 Lymph # (Auto) 4.8 [place] # (Auto) 1.0 Eos # (Auto) 0.1 Baso # (Auto) 0.1 Abs Immat Gran (auto) 0.06 H Absolute Neuts (auto) 5.7 Absolute Nucleated RBC 0.000 Nucleated RBC % (auto) 0.0 Potassium Estimat Average Glucose Hemoglobin A1c % Triglycerides Cholesterol LDL Cholesterol, Calc HDL Cholesterol Vitamin B12 248 Folate 13.4 Imaging Radiology Impressions: ITS Impressions Chest X-Ray 04/18/20 17:00 IMPRESSION: Spinal hardware. Lungs appear clear. Medications Medications Current Medications Generic Name Dose Route Start Last Admin Trade Name Freq PRN Reason Stop Dose Admin Acetaminophen 650 mg 04/19/20 15:21 04/19/20 17:28 Acetaminophen 325 Mg Tablet PO 650 mg Q6H PRN Administration Headache/Pain Mild Scale (1-3) Al Hydroxide/Mg Hydroxide 30 ml 04/19/20 15:21 Magnesium Hydrox/Alum Hydrox 30 Ml Oral.Susp PO Q6H PRN Heartburn/Nausea Amlodipine Besylate 5 mg 04/19/20 17:25 04/20/20 08:59 Amlodipine Besylate 5 Mg Tablet PO 5 mg DAILY KENDRICK Administration Protocol Clonidine HCl 0.1 mg 04/19/20 10:16 04/19/20 14:44 Clonidine Hcl 0.1 Mg Tablet PO 0.1 mg BID PRN Administration Anxiety Protocol Clonidine HCl 0.2 mg 04/19/20 21:00 04/20/20 21:08 Clonidine Hcl 0.1 Mg Tablet PO 0.2 mg BEDTIME KENDRICK Administration Protocol Clonidine HCl 0.1 mg 04/21/20 09:00 Clonidine Hcl 0.1 Mg Tablet PO DAILY KENDRICK Protocol Escitalopram Oxalate 20 mg 04/19/20 10:30 04/20/20 08:59 Escitalopram Oxalate 20 Mg Tablet PO 20 mg DAILY KENDRICK Administration Folic Acid 1 mg 04/19/20 17:20 04/20/20 08:58 Folic Acid 1 Mg Tablet PO 1 mg DAILY KENDRICK Administration Hydroxyzine HCl 25 mg 04/19/20 15:21 Hydroxyzine Hcl 25 Mg Tablet PO BEDTIME PRN Anxiety Lorazepam 1 mg 04/19/20 17:15 04/20/20 12:48 Lorazepam 1 Mg Tablet PO 1 mg Q4H PRN Administration anxiety/alcohol withdrawal Magnesium Hydroxide 30 ml 04/19/20 15:21 04/19/20 19:01 Milk Of Magnesia 30 Ml Oral.Susp PO 30 ml DAILY PRN Administration Constipation Mirtazapine 30 mg 04/19/20 21:00 04/20/20 21:05 Mirtazapine 30 Mg Tablet PO 30 mg BEDTIME KENDRICK Administration Naltrexone HCl 50 mg 04/19/20 10:30 04/20/20 08:58 Naltrexone Hcl 50 Mg Tablet PO 50 mg DAILY KENDRICK Administration Nicotine 14 mg 04/20/20 09:00 04/20/20 08:59 Nicotine 14 Mg Patch.Td24 TRANSDERMA 14 mg DAILY KENDRICK Administration Nicotine Polacrilex 4 mg 04/19/20 22:30 04/20/20 16:10 Nicotine Polacrilex 2 Mg Gum BUCCAL 4 mg Q2H PRN Administration Nicotine Cravings Pat Own Med (Humira 1 each 04/25/20 09:00 Cf 40mg/0.4ml) SUBCUT TH@0900 KENDRICK Thiamine HCl 100 mg 04/19/20 17:20 04/20/20 08:59 Thiamine Hcl 100 Mg Tablet PO 100 mg DAILY KENDRICK Administration Trazodone HCl 50 mg 04/19/20 15:21 Trazodone Hcl 50 Mg Tablet PO BEDTIME PRN Insomnia Allergies Allergies Allergy/AdvReac Type Severity Reaction Status Date / Time Penicillins Allergy Rash Verified 04/18/20 14:29 Assessment & Plan Greater than 50% of the session was spent on counseling and/or coordination of care Reason for contiued inpatient stay Substantial Risk for: harm to self
[2020-04-21] MEDS: Thiamine HCL 100 MG TABLET PO (08:26)
[2020-04-21] MEDS: cloNIDine HCL 0.1 MG TABLET PO ×2 (08:27→13:43)
[2020-04-21] MEDS: Escitalopram Oxalate 20 MG TABLET PO (08:28)
[2020-04-21] MEDS: Naltrexone HCl 50 MG TABLET PO (08:28)
[2020-04-21] MEDS: amLODIPine Besylate 5 MG TABLET PO (08:28)
[2020-04-21] MEDS: Folic Acid 1 MG TABLET PO (08:28)
[2020-04-21] MEDS: Nicotine 14 MG PATCH.TD24 TRANSDERMA (08:50)
[2020-04-21] MEDS: LORazepam 1 MG TABLET PO (13:43)
[2020-04-21] MEDS: cloNIDine HCL 0.1 MG TABLET 0.2 MG PO (20:20)
[2020-04-21] MEDS: Mirtazapine 30 MG TABLET PO (21:06)
[2020-04-22 06:30] VITALS: BP 145/73; PULSE 87; RESP 16; TEMP 36.9; O2SAT 99
[2020-04-22 08:41] VITALS: BP 139/96; PULSE 104
[2020-04-22] MEDS: Escitalopram Oxalate 20 MG TABLET PO (08:41)
[2020-04-22] MEDS: amLODIPine Besylate 5 MG TABLET PO (08:41)
[2020-04-22 08:42] VITALS: BP 139/96; PULSE 104
[2020-04-22] MEDS: Naltrexone HCl 50 MG TABLET PO (08:42)
[2020-04-22] MEDS: cloNIDine HCL 0.1 MG TABLET PO ×2 (08:42→12:24)
[2020-04-22] MEDS: Folic Acid 1 MG TABLET PO (08:42)
[2020-04-22] MEDS: Thiamine HCL 100 MG TABLET PO (08:43)
[2020-04-22] MEDS: Nicotine 14 MG PATCH.TD24 TRANSDERMA (08:43)
[2020-04-22] MEDS: Acetaminophen 325 MG TABLET 650 MG PO (08:48)
[2020-04-22 12:24] VITALS: BP 164/84; PULSE 101
[2020-04-22] MEDS: LORazepam 1 MG TABLET PO ×2 (12:25→20:46)
--- NOTE | 2020-04-22 19:05 | HO.PSYCHPN ---
Subjective Subjective Date of Service: 04/29/20 Reason For Visit: SI Interim History: Pt anxiously awaiting to speak with this technical writer and ask for discharge. She reports feeling less overwhelmed and less depressed. She denies SI/HI. She reports having a plan to prevent relapse including going to [facility]. She denies SI/HI. She reports boyfriend is supported although guarded when we ask to speak with him for collateral information. Review of Systems Review of Systems Yes Unobtainable due to mental condition (Intoxication and agitated) Mental Status Exam Mental Status Exam Narrative: Appearance: casually groomed, good hygiene, in NAD Behavior: calm, cooperative Psychomotor: no agitation or retardation noted Speech: clear, normal rate/rhythm/volume, spontaneous TP: linear TC: no signs of psychosis, future oriented Mood: better Affect:brighter, non labile SI:none HI:none AH/VH:none Delusions:none Insight/judgment:poorx 2 Memory/cog: alert, oriented x 3. Grossly intact to conversational testing. Diagnostics Vital Signs (24Hr): Vital Signs - 24 hr 04/21/20 20:20 04/22/20 06:30 04/22/20 08:41 Temperature 98.5 F Pulse Rate 98 87 104 H Respiratory Rate 16 Blood Pressure 129/90 H 145/73 H 139/96 H Pulse Oximetry 99 04/22/20 08:42 04/22/20 12:24 Temperature Pulse Rate 104 H 101 H Respiratory Rate Blood Pressure 139/96 H 164/84 H Pulse Oximetry Body Mass Index 49.1 Labs Results: 04/20/20 07:21 04/20/20 07:21 Imaging Radiology Impressions: ITS Impressions Chest X-Ray 04/18/20 17:00 IMPRESSION: Spinal hardware. Lungs appear clear. Medications Medications Current Medications Generic Name Dose Route Start Last Admin Trade Name Freq PRN Reason Stop Dose Admin Acetaminophen 650 mg 04/19/20 15:21 04/22/20 08:48 Acetaminophen 325 Mg Tablet PO 650 mg Q6H PRN Administration Headache/Pain Mild Scale (1-3) Al Hydroxide/Mg Hydroxide 30 ml 04/19/20 15:21 Magnesium Hydrox/Alum Hydrox 30 Ml Oral.Susp PO Q6H PRN Heartburn/Nausea Amlodipine Besylate 5 mg 04/19/20 17:25 04/22/20 08:41 Amlodipine Besylate 5 Mg Tablet PO 5 mg DAILY KENDRICK Administration Protocol Clonidine HCl 0.1 mg 04/19/20 10:16 04/22/20 12:24 Clonidine Hcl 0.1 Mg Tablet PO 0.1 mg BID PRN Administration Anxiety Protocol Clonidine HCl 0.2 mg 04/19/20 21:00 04/21/20 20:20 Clonidine Hcl 0.1 Mg Tablet PO 0.2 mg BEDTIME KENDRICK Administration Protocol Clonidine HCl 0.1 mg 04/21/20 09:00 04/22/20 08:42 Clonidine Hcl 0.1 Mg Tablet PO 0.1 mg DAILY KENDRICK Administration Protocol Escitalopram Oxalate 20 mg 04/19/20 10:30 04/22/20 08:41 Escitalopram Oxalate 20 Mg Tablet PO 20 mg DAILY KENDRICK Administration Folic Acid 1 mg 04/19/20 17:20 04/22/20 08:42 Folic Acid 1 Mg Tablet PO 1 mg DAILY KENDRICK Administration Hydroxyzine HCl 25 mg 04/19/20 15:21 Hydroxyzine Hcl 25 Mg Tablet PO BEDTIME PRN Anxiety Lorazepam 1 mg 04/19/20 17:15 04/22/20 12:25 Lorazepam 1 Mg Tablet PO 1 mg Q4H PRN Administration anxiety/alcohol withdrawal Magnesium Hydroxide 30 ml 04/19/20 15:21 04/19/20 19:01 Milk Of Magnesia 30 Ml Oral.Susp PO 30 ml DAILY PRN Administration Constipation Mirtazapine 30 mg 04/19/20 21:00 04/21/20 21:06 Mirtazapine 30 Mg Tablet PO 30 mg BEDTIME KENDRICK Administration Naltrexone HCl 50 mg 04/19/20 10:30 04/22/20 08:42 Naltrexone Hcl 50 Mg Tablet PO 50 mg DAILY KENDRICK Administration Nicotine 14 mg 04/20/20 09:00 04/22/20 08:43 Nicotine 14 Mg Patch.Td24 TRANSDERMA 14 mg DAILY KENDRICK Administration Nicotine Polacrilex 4 mg 04/19/20 22:30 04/20/20 16:10 Nicotine Polacrilex 2 Mg Gum BUCCAL 4 mg Q2H PRN Administration Nicotine Cravings Pat Own Med (Humira 1 each 04/25/20 09:00 Cf 40mg/0.4ml) SUBCUT TH@0900 KENDRICK Thiamine HCl 100 mg 04/19/20 17:20 04/22/20 08:43 Thiamine Hcl 100 Mg Tablet PO 100 mg DAILY KENDRICK Administration Trazodone HCl 50 mg 04/19/20 15:21 Trazodone Hcl 50 Mg Tablet PO BEDTIME PRN Insomnia Allergies Allergies Allergy/AdvReac Type Severity Reaction Status Date / Time Penicillins Allergy Rash Verified 04/18/20 14:29 Assessment & Plan Assessment & Plan (1) Alcohol abuse: Status: Acute Code(s): F10.10 - Alcohol abuse, uncomplicated (2) Cocaine abuse: Status: Acute Code(s): F14.10 - Cocaine abuse, uncomplicated (3) MDD (major depressive disorder), recurrent episode, moderate: Status: Acute Code(s): F33.1 - Major depressive disorder, recurrent, moderate Assessment and Plan: continue current medications. Greater than 50% of the session was spent on counseling and/or coordination of care Reason for contiued inpatient stay Substantial Risk for: harm to self
[2020-04-22 20:40] VITALS: BP 188/86; PULSE 83; TEMP 37.1
[2020-04-22 20:43] VITALS: BP 188/86; PULSE 83
[2020-04-22] MEDS: cloNIDine HCL 0.1 MG TABLET 0.2 MG PO (20:43)
[2020-04-22] MEDS: Mirtazapine 30 MG TABLET PO (20:44)
[2020-04-23] VITALS: BP 111/59; PULSE 64; RESP 18; O2SAT 98
[2020-04-23 06:00] VITALS: RESP 16
[2020-04-23] MEDS: Nicotine 14 MG PATCH.TD24 TRANSDERMA (08:19)
[2020-04-23 08:20] VITALS: BP 119/88; PULSE 113
[2020-04-23] MEDS: cloNIDine HCL 0.1 MG TABLET PO (08:20)
[2020-04-23] MEDS: Thiamine HCL 100 MG TABLET PO (08:20)
[2020-04-23] MEDS: Naltrexone HCl 50 MG TABLET PO (08:21)
[2020-04-23] MEDS: amLODIPine Besylate 5 MG TABLET PO (08:21)
[2020-04-23] MEDS: Folic Acid 1 MG TABLET PO (08:21)
[2020-04-23] MEDS: Escitalopram Oxalate 20 MG TABLET PO (08:21)
--- NOTE | 2020-04-23 10:26 | P.DS_ITS ---
DS: Providers Provider Date of Service: 05/08/20 Date of admission: 04/19/20 15:21 Primary care physician: Enrico Castaneda MD DS: Medications Discharge Medications Home Medications: Home Medications Medication Instructions Recorded Confirmed Humira(CF) Pen 40 mg SUBCUT TH@0900 04/19/20 04/19/20 citalopram 40 mg PO DAILY 04/19/20 04/19/20 clonidine HCl 0.1 mg PO BID PRN 04/19/20 04/19/20 clonidine HCl 0.2 mg PO BEDTIME 04/19/20 04/19/20 mirtazapine 30 mg PO BEDTIME 04/19/20 04/19/20 naltrexone 50 mg PO DAILY 04/19/20 04/19/20 Previous Rx's Medication Instructions Recorded amlodipine 5 mg PO DAILY 15 Days #15 tab 04/23/20 nicotine 14 mg TRANSDERMAL DAILY 30 Days 04/23/20 #30 ea Discharge Plan Discharge Patient Disposition: Home, Self-Care Referrals: Dr. Zamora (psychiatrist) [Other] - 05/03/20 2:00 pm (Telehealth appointment) Arianne (therapist) [Other] - 04/25/20 9:00 am (Telehealth appointment) Enrico Castaneda MD [Primary Care Provider] - 04/30/20 11:00 am (via phone. will call patient between 10:30 -11:30) Discharge Medications: New nicotine 14 mg/24 hr Patch 24 Hour 14 mg transdermal DAILY 30 Days Qty: 30 RF: 0 amlodipine 5 mg Tablet 5 mg PO DAILY 15 Days Qty: 15 RF: 0 amlodipine 5 mg tablet 5 mg PO DAILY Qty: 14 RF: 0 Continued clonidine HCl 0.1 mg tablet 0.1 mg PO BID PRN (Reason: Anxiety) RF: 0 clonidine HCl 0.1 mg tablet 0.2 mg PO BEDTIME RF: 0 citalopram 40 mg tablet 40 mg PO DAILY RF: 0 naltrexone 50 mg tablet 50 mg PO DAILY RF: 0 mirtazapine 30 mg tablet 30 mg PO BEDTIME RF: 0 Humira(CF) Pen 40 mg/0.4 mL pen injector kit 40 mg subcut TH@0900 RF: 0 Discontinued lorazepam 0.5 mg tablet 0.5 - 1 mg PO DAILY PRN (Reason: Anxiety) RF: 0 ibuprofen 600 mg tablet 1 tab PO Q8H PRN (Reason: Pain) RF: 0 Discharge Orders: Discharge Order (Routine); Ordered 04/23/20 Ordered By: [place] Diet: regular diet Activity on Discharge: As tolerated Stand Alone Forms: Patient Portal Discharge page, Community Support Care Plan Goals: 1. Follow up with referrals Health Concerns: 1. Follow up with PCP- HTN Plan of Treatment: 1. take medications as prescribed. Discharge Date/Time: 04/23/20 12:20 Mental Status Exam Mental Status Exam Narrative: Appearance: casually groomed, good hygiene, in NAD Behavior: calm, cooperative Psychomotor: no agitation or retardation noted Speech: clear, normal rate/rhythm/volume, spontaneous TP: linear TC: no signs of psychosis, hopeless/helpless Mood: better Affect:brighter, non labile SI:none HI:none AH/VH:none Delusions:none Insight/judgment:poor x 2 Memory/cog: alert, oriented x 3. Grossly intact to conversational testing. Data Data Completed and Pending Completed studies during hospitalization [Text1]: 04/18/20 04/18/20 04/18/20 14:47 14:47 14:47 WBC RBC Hgb Hct MCV MCH MCHC RDW Plt Count MPV Immature Gran % (Auto) Neut % (Auto) Lymph % (Auto) [place] % (Auto) Eos % (Auto) Baso % (Auto) Lymph # (Auto) [place] # (Auto) Eos # (Auto) Baso # (Auto) Abs Immat Gran (auto) Absolute Neuts (auto) Absolute Nucleated RBC Nucleated RBC % (auto) PT INR APTT Sodium Potassium Chloride Carbon Dioxide Anion Gap BUN Creatinine Estim Creat Clear Calc Estimated GFR Random Glucose Estimat Average Glucose Hemoglobin A1c % Calcium Total Bilirubin AST ALT Alkaline Phosphatase Total Protein Albumin Triglycerides Cholesterol LDL Cholesterol, Calc HDL Cholesterol Vitamin B12 Folate Urine Color STRAW Urine Appearance CLEAR Urine pH 6.0 Ur Specific [place] <= 1.005 Urine Protein NEG Urine Glucose (UA) NEG Urine Ketones NEG Urine Blood NEG Urine Nitrite NEG Ur Leukocyte Esterase NEG Urine RBC 0 Urine WBC 0 Ur Squamous Epith Cells 1+ Urine Bacteria TRACE Urine Test NEGATIVE Salicylates Urine Opiates Screen Not Detected Acetaminophen Ur Barbiturates Screen Not Detected Ur Phencyclidine Scrn Not Detected Ur Amphetamines Screen Not Detected U Benzodiazepines Scrn Not Detected Urine Cocaine Screen POSITIVE H U Marijuana (THC) Screen POSITIVE H Ethyl Alcohol COVID-19 ([facility]) COVID-19 Clin Com 04/18/20 04/18/20 04/18/20 14:50 14:50 14:51 WBC 16.7 H RBC 4.55 Hgb 13.9 Hct 40.6 MCV 89.2 MCH 30.5 MCHC 34.2 RDW 13.4 Plt Count 386 MPV 8.7 L Immature Gran % (Auto) 0.5 H Neut % (Auto) 63.7 Lymph % (Auto) 29.3 [place] % (Auto) 5.9 Eos % (Auto) 0.4 Baso % (Auto) 0.2 Lymph # (Auto) 4.9 [place] # (Auto) 1.0 Eos # (Auto) 0.1 Baso # (Auto) 0.0 Abs Immat Gran (auto) 0.09 H Absolute Neuts (auto) 10.6 H Absolute Nucleated RBC 0.000 Nucleated RBC % (auto) 0.0 PT INR APTT Sodium 140 Potassium 3.1 L Chloride 103 Carbon Dioxide 21 L Anion Gap 19 BUN 3 L Creatinine 0.65 Estim Creat Clear Calc 141.7 Estimated GFR > 60 Random Glucose 105 Estimat Average Glucose Hemoglobin A1c % Calcium 9.5 Total Bilirubin 0.4 AST 15 ALT 9 Alkaline Phosphatase 108 Total Protein 7.8 Albumin 4.3 Triglycerides Cholesterol LDL Cholesterol, Calc HDL Cholesterol Vitamin B12 Folate Urine Color Urine Appearance Urine pH Ur Specific [place] Urine Protein Urine Glucose (UA) Urine Ketones Urine Blood Urine Nitrite Ur Leukocyte Esterase Urine RBC Urine WBC Ur Squamous Epith Cells Urine Bacteria Urine Test Salicylates < 5.0 L Urine Opiates Screen Acetaminophen < 1 Ur Barbiturates Screen Ur Phencyclidine Scrn Ur Amphetamines Screen U Benzodiazepines Scrn Urine Cocaine Screen U Marijuana (THC) Screen Ethyl Alcohol 156 COVID-19 ([facility]) COVID-19 Clin Com 04/18/20 04/18/20 04/19/20 14:51 18:04 00:26 WBC RBC Hgb Hct MCV MCH MCHC RDW Plt Count MPV Immature Gran % (Auto) Neut % (Auto) Lymph % (Auto) [place] % (Auto) Eos % (Auto) Baso % (Auto) Lymph # (Auto) [place] # (Auto) Eos # (Auto) Baso # (Auto) Abs Immat Gran (auto) Absolute Neuts (auto) Absolute Nucleated RBC Nucleated RBC % (auto) PT 12.6 INR 1.1 APTT 33.8 Sodium 139 Potassium 3.1 L Chloride 104 Carbon Dioxide 23 Anion Gap 15 BUN 5 L D Creatinine 0.68 Estim Creat Clear Calc 135.4 Estimated GFR > 60 Random Glucose 117 H Estimat Average Glucose Hemoglobin A1c % Calcium 9.1 Total Bilirubin 0.4 AST 14 ALT 10 Alkaline Phosphatase 100 Total Protein 7.3 Albumin 4.1 Triglycerides Cholesterol LDL Cholesterol, Calc HDL Cholesterol Vitamin B12 Folate Urine Color Urine Appearance Urine pH Ur Specific [place] Urine Protein Urine Glucose (UA) Urine Ketones Urine Blood Urine Nitrite Ur Leukocyte Esterase Urine RBC Urine WBC Ur Squamous Epith Cells Urine Bacteria Urine Test Salicylates < 5.0 L Urine Opiates Screen Acetaminophen < 1 Ur Barbiturates Screen Ur Phencyclidine Scrn Ur Amphetamines Screen U Benzodiazepines Scrn Urine Cocaine Screen U Marijuana (THC) Screen Ethyl Alcohol COVID-19 ([facility]) Negative COVID-19 [facility]of[facility] Com See Note 04/20/20 04/20/20 04/20/20 07:21 07:21 07:21 WBC RBC Hgb Hct MCV MCH MCHC RDW Plt Count MPV Immature Gran % (Auto) Neut % (Auto) Lymph % (Auto) [place] % (Auto) Eos % (Auto) Baso % (Auto) Lymph # (Auto) [place] # (Auto) Eos # (Auto) Baso # (Auto) Abs Immat Gran (auto) Absolute Neuts (auto) Absolute Nucleated RBC Nucleated RBC % (auto) PT INR APTT Sodium Potassium 4.0 D Chloride Carbon Dioxide Anion Gap BUN Creatinine Estim Creat Clear Calc Estimated GFR Random Glucose Estimat Average Glucose 126 Hemoglobin A1c % 6.0 Calcium Total Bilirubin AST ALT Alkaline Phosphatase Total Protein Albumin Triglycerides 185 Cholesterol 232 LDL Cholesterol, Calc 146 HDL Cholesterol 49 Vitamin B12 Folate Urine Color Urine Appearance Urine pH Ur Specific [place] Urine Protein Urine Glucose (UA) Urine Ketones Urine Blood Urine Nitrite Ur Leukocyte Esterase Urine RBC Urine WBC Ur Squamous Epith Cells Urine Bacteria Urine Test Salicylates Urine Opiates Screen Acetaminophen Ur Barbiturates Screen Ur Phencyclidine Scrn Ur Amphetamines Screen U Benzodiazepines Scrn Urine Cocaine Screen U Marijuana (THC) Screen Ethyl Alcohol COVID-19 ([facility]) COVID-19 Clin Com 04/20/20 04/20/20 07:21 07:21 WBC 11.7 H RBC 4.72 Hgb 14.5 Hct 43.1 MCV 91.3 MCH 30.7 MCHC 33.6 RDW 13.2 Plt Count 400 MPV 8.8 L Immature Gran % (Auto) 0.5 H Neut % (Auto) 48.6 Lymph % (Auto) 41.1 H [place] % (Auto) 8.7 Eos % (Auto) 0.7 Baso % (Auto) 0.4 Lymph # (Auto) 4.8 [place] # (Auto) 1.0 Eos # (Auto) 0.1 Baso # (Auto) 0.1 Abs Immat Gran (auto) 0.06 H Absolute Neuts (auto) 5.7 Absolute Nucleated RBC 0.000 Nucleated RBC % (auto) 0.0 PT INR APTT Sodium Potassium Chloride Carbon Dioxide Anion Gap BUN Creatinine Estim Creat Clear Calc Estimated GFR Random Glucose Estimat Average Glucose Hemoglobin A1c % Calcium Total Bilirubin AST ALT Alkaline Phosphatase Total Protein Albumin Triglycerides Cholesterol LDL Cholesterol, Calc HDL Cholesterol Vitamin B12 248 Folate 13.4 Urine Color Urine Appearance Urine pH Ur Specific [place] Urine Protein Urine Glucose (UA) Urine Ketones Urine Blood Urine Nitrite Ur Leukocyte Esterase Urine RBC Urine WBC Ur Squamous Epith Cells Urine Bacteria Urine Test Salicylates Urine Opiates Screen Acetaminophen Ur Barbiturates Screen Ur Phencyclidine Scrn Ur Amphetamines Screen U Benzodiazepines Scrn Urine Cocaine Screen U Marijuana (THC) Screen Ethyl Alcohol COVID-19 ([facility]) COVID-19 Clin Com Imaging Diagnostic Imaging Impressions Chest X-Ray 04/18/20 17:00 IMPRESSION: Spinal hardware. Lungs appear clear. DS: Summary Hospital Course Hospital Course: HPI Ms. Nolen is a 50 year-old woman with hx of MDD and cocaine use. She self presented to [facility] ED reporting increased depressed mood, suicidal ideation, hopeless/helpless in context of recent relapse on cocaine. She also used alcohol night before but states drug of choice is cocaine. This is her first inpatient admission. She reports she is currently going to school. She reports that she does not think her family understands her. She endorse depressed mood, anhedonia, hopeless/helpless. She denied hx of VH/AH. She does tend to minimize cocaine use, stating she does not think it is a problems. Past Psychiatric History: OP: CHD Inpt: none Suicide attempts: none Past medication trials: remeron, sertraline. HOSPITAL COURSE Ms. Jason was placed on 15 minutes checks for safety. She endorse depressed mood, anxiety, hopeless/helpless. On the unit, she denied SI/HI. We discussed risks, benefits and alternative treatment options. She agreed to continue sertraline and remeron which she has been taking for several years. She attributed current increase in depressed mood to relapse on cocaine. Ms. Jason quickly presented with bright affect. She denied suicidal or homicidal ideation. She reported decreased symptoms of depression. She reported improved sleep and appetite. She was visible in the unit and attended assigned groups. She agreed to continue OP psychiatric treatment and IOP for substance use. While in unit, pt was hypertensive, she was started on amlodipine and was advised to follow up with PCP, which she agreed to do. There were no incidences of disruptive behaviors nor use of restraints. Collateral information was gathered from her mother who reported pt was back to baseline and denied any safety concerns at time of discharge. Time spent discussing smoking cessation with patient: 3 to 10 minutes Status at Discharge Cognitive/behavioral status at discharge: Pt appears with brighter affect. She denied SI/HI. She is future oriented. Functional status at discharge: independent ambulation Overall status at discharge: patient is progressing back to baseline Time Spent with Patient Time attestation: Total time spent providing and/or coordinating discharge services: Time spent: Greater than 30 minutes
== END 2020-04-23 12:20 | disposition home or self-care (01) | DRG 754 ==
LOC: HO.ED 04-19 03:38 → HO.PM5 04-19 15:28
PROVIDERS: Nurse Practitioner Primary Care; Admitting Provider Psychiatry & Neurology Psychiatry; Emergency Provider Internal Medicine; PCP Internal Medicine; Visit Provider Social Worker
DX: F32.9 Major depressive disorder, single episode, unspecified (principal); R45.851 Suicidal ideations; F14.90 Cocaine use, unspecified, uncomplicated; F10.129 Alcohol abuse with intoxication, unspecified; F17.210 Nicotine dependence, cigarettes, uncomplicated; Z71.6 Tobacco abuse counseling; Z20.822 Contact with and (suspected) exposure to COVID-19; Z79.899 Other long term (current) drug therapy
CPT/HCPCS: 36415; 71045; 80053; 80061; 80143; 80179; 80307; 80320; 81001; 81025; 82607; 82746; 83036; 84132; 85025; 85610; 85730; 87635; 93005; 96374; 96375; 99285; J2060; J2405